=== PATIENT | female | born 2000 | race Caucasian/White ===

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

== ENCOUNTER → 2020-06-27 | Outpatient (CLI) | payer OTHER ==
--- NOTE | 2020-06-27 10:36 | KCIC ---
Examination: MRI of the right wrist without contrast HISTORY: History of right wrist tendinitis COMPARISON: None available TECHNIQUE: Multiplanar, multisequence MR imaging of the pancreas were performed without contrast FINDINGS: The alignment of the carpal bones grossly appears unremarkable.The scapholunate, lunotriquetral ligam ent appears intact. There is cystic structure identified measuring 1.1 cm just distal to the ulnar st yloid abutting the triangular fibrocartilage complex distally could be fluid in the pisiform recess o r a ganglion cyst. The ulnar nerve, radial nerve grossly appears unremarkable. There is mild increased T2 signal with mild thickened appearance of the extensor carpi ulnaris at the level of the ulnar styloid likely mild tendinosis. IMPRESSION: 1. Mild tendinosis/tendinopathy extensor carpi ulnaris. 2. Cystic structure identified measuring 1.1 cm just distal to the ulnar styloid abutting the triangu lar fibrocartilage complex distally could be fluid in the pisiform recess or a ganglion cyst. Electronically signed by: Matias English MD (06/27/2020 10:34 AM) [id number]
== END ==
LOC: KCIC MRI 08:36
PROVIDERS: ATTEND Physician Assistant
DX: S63.091A Other subluxation of right wrist and hand, initial encounter (principal); M77.8 Other enthesopathies, not elsewhere classified; G56.01 Carpal tunnel syndrome, right upper limb; X58.XXXA Exposure to other specified factors, initial encounter; Y93.89 Activity, other specified; Y92.89 Other specified places as the place of occurrence of the external cause; Y99.8 Other external cause status
CPT/HCPCS: 73221